=== PATIENT | male | born 2000 ===

== ENCOUNTER 2022-03-10 00:45 | Emergency (ER) | payer SELFPAY ==
[2022-03-10 01:08] VITALS: BP 111/68; PULSE 77; RESP 18; TEMP 37.1; O2SAT 100; BMI 18.6
[2022-03-10 01:39] LABS: COVID-19 Test Positive (Negative)
== END 2022-03-10 05:25 | disposition left against medical advice (07) ==
PROVIDERS: Physician Assistant; Emergency Provider Emergency Medicine
DX: U07.1 COVID-19 (principal); R06.02 Shortness of breath; R53.83 Other fatigue
CPT/HCPCS: 87635; 99281; 99283